=== PATIENT | male | born 1985 | race African-American/Black ===

== ENCOUNTER 2017-02-20 12:53 | Emergency (ER) | payer OTHER ==
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
[~2017-02-20 12:53] MED LIST: KETOPROFEN PO; ORUDIS75 M1 PO; VOLTAREN75 MG PO
== END 2017-02-20 14:20 | disposition home or self-care (01) ==
LOC: CFTX 12:53 → CED 12:53 → CFTX 13:02
DX: S13.4XXA Sprain of ligaments of cervical spine, initial encounter (principal); S33.5XXA Sprain of ligaments of lumbar spine, initial encounter; F17.210 Nicotine dependence, cigarettes, uncomplicated; V43.52XA Car driver injured in collision with other type car in traffic accident, initial encounter; Y92.410 Unspecified street and highway as the place of occurrence of the external cause; Y99.9 Unspecified external cause status
CPT/HCPCS: 71101; 72040; 72100; 99284

== ENCOUNTER 2017-05-21 19:35 | Emergency (ER) | payer SELFPAY ==
[~2017-05-21] VITALS: Ht 195.6 cm; Wt 87.1 kg
== END 2017-05-21 21:07 | disposition home or self-care (01) ==
LOC: CED 19:35 → CFTX 19:35
DX: S29.012A Strain of muscle and tendon of back wall of thorax, initial encounter (principal); X50.0XXA Overexertion from strenuous movement or load, initial encounter; Y92.69 Other specified industrial and construction area as the place of occurrence of the external cause; Y99.0 Civilian activity done for income or pay
CPT/HCPCS: 99283